=== PATIENT | male | born 1985 | race Hispanic/Latino ===

== ENCOUNTER → 2024-12-08 | Outpatient (CLI) | payer OTHER ==
[~2024-12-08] MED LIST: IOHEXOL-350 75 ML VIAL IV ONE
--- NOTE | 2024-12-08 12:05 | HMCIMG ---
CT ABDOMEN/PELVIS W/CONTRAST HISTORY: Unspecified abdominal pain. COMPARISON: None. TECHNIQUE: Sequential axial images through abdomen and pelvis were performed. Patient was given 100 mL of Omnipaque IV. Coronal and sagittal reformats were obtained. FINDINGS: Lung bases: Clear. Liver: Normal size and enhancement throughout. Portal vein: Patent. Gallbladder: Unremarkable. Spleen: Normal. Kidneys: Normal size and shape. There is a simple cyst seen in upper to midpole of the right kidney measuring 2.8 cm. Adrenal glands: Normal Pancreas: Unremarkable. Stomach and small bowel: No inflammation or distention noted. Colon: Unremarkable. Appendix: There is a surgical clips in the cecum suggesting of prior appendectomy. Bladder: Partially distended and unremarkable. Reproductive system: The prostate and seminal vesicle appears to be normal.. Abdominal aorta: Normal caliber. Skeletal: No acute abnormality. There is an umbilical hernia with properitoneal fat. The defect of the wall is 2.2 cm. The properitoneal fat is herniating measuring approximately 3.8 x 6.6 cm. IMPRESSION: No acute process noted. Simple cyst seen in upper to mid pole of the right kidney measuring approximately 2.8 cm
== END | disposition home or self-care (01) ==
LOC: RAH 10:05
PROVIDERS: ATTEND Student in an Organized Health Care Education/Training Program
DX: N28.1 Cyst of kidney, acquired (principal); R10.9 Unspecified abdominal pain; N32.89 Other specified disorders of bladder; Z90.49 Acquired absence of other specified parts of digestive tract
CPT/HCPCS: 74177; Q9967